=== PATIENT | male | born 2000 | race Hispanic/Latino ===

== ENCOUNTER 2023-05-04 12:55 | Emergency (ER) | payer SELFPAY ==
[2023-05-04 13:52] LABS: #Basophils 0.1 thou/uL (0.0-0.2); #Eosinphils 0.1 thou/uL (0.0-0.7); #Monocytes 0.8 thou/uL (0.11-0.59); %Basophils 0.6 % (0.0-1.0); %Eosinophils 0.6 % (0.0-10.0); Hemoglobin 16.8 g/dL (14.0-18.0); Mean Corpuscular Hemoglobin 31.8 pg (27.0-31.0); Mean Corpuscular Volume 90.7 fl (78.0-98.0); Mean Platelet Volume 8.7 fL (7.4-10.4); Platelet Count 299 10x3/uL (130-400); RBC Distribution Width 11.6 % (11.5-14.5); Red Blood Cell (RBC) Count 5.29 mill/uL (4.70-6.10); White Blood Cell (WBC) Count 8.4 10x3/uL (4.8-10.8)
[2023-05-04 14:14] LABS: ALT (SGPT) 232 U/L (8-55); AST (SGOT) 76 U/L (5-34); Albumin 5.3 g/dL (3.5-5.0); Alkaline Phosphatase 169 U/L (40-110); Anion Gap 16 mmol/L (10-20); BUN (Urea Nitrogen) 9 mg/dL (8.9-20.6); Bilirubin, Total 1.5 mg/dL (0.2-1.2); Calc. Creatinine Clearance 0 mL/min (70-130); Calcium 10.7 mg/dL (7.8-10.44); Carbon Dioxide 24 mmol/L (22-29); Chloride 101 mmol/L (98-107); Estimated GFR 128; Globulin 2.7 g/dL (2.4-3.5); Glucose 117 mg/dL (70-105); Lipase 103 U/L (8-78); Potassium 3.7 mmol/L (3.5-5.1); Sodium 137 mmol/L (136-145)
[2023-05-04 14:25] LABS: Troponin I Less than 0.010 ng/mL (< 0.028)
[2023-05-04] MEDS ORDERED: Ketorolac Tromethamine 30 MG/ML VIAL ONE (14:58)
[2023-05-04] MEDS ORDERED: Pantoprazole 40 MG VIAL ONE (14:59)
== END 2023-05-04 17:00 | disposition home or self-care (01) ==
LOC: ERS 12:55
DX: K85.90 Acute pancreatitis without necrosis or infection, unspecified (principal); K29.20 Alcoholic gastritis without bleeding
CPT/HCPCS: 36415; 71045; 76705; 80053; 83690; 84484; 85025; 93005; 96374; 96375; C9113; J1885